=== PATIENT | female | born 1980 | race Caucasian/White ===

== ENCOUNTER 2020-10-14 16:46 | Inpatient (IN) | payer OTHER ==
[~2020-10-14] VITALS: Ht 160 cm; Wt 52.6 kg
[~2020-10-14 16:46] MED LIST: LITHIUM CARBON300 M1 PO; NEURONTIN300 MG PO; REMERON15 MG PO; TRAMADOL HCL50 MG PO
[2020-10-14 17:06] VITALS: BP 117/79
[2020-10-14 19:38] LABS: HEMATOCRIT 37.5 % (37.0-47.0); MEAN CELL VOLUME 87.8 fl (81.0-99.0); MEAN CORPUSCULAR HGB 28.6 pg (27.0-31.0); MEAN CORPUSCULAR HGB CONC 32.5 g/dl (33.0-37.0); MEAN PLATELET VOLUME 9.8 fl (9.6-12.3); PLATELET COUNT AUTOMATED 339 10*3/uL (130-400); RED BLOOD COUNT 4.27 10*6/uL (4.10-5.10); RED CELL DISTRI WIDTH 12.8 % (0-14.5); WHITE BLOOD COUNT 8.8 10*3/uL (4.8-10.8)
[2020-10-14 19:54] LABS: ALBUMIN 3.3 gm/dl (3.1-4.5); ALKALINE PHOSPHATASE 82 U/L (45-117); BUN 8 mg/dl (7-24); CHLORIDE 111 mmol/L (98-107); CREATININE 0.58 mg/dL (0.55-1.02); POTASSIUM 3.2 mmol/L (3.5-5.1); SGOT/AST 25 IU/L (3-35); SGPT/ALT 44 U/L (12-78); SODIUM 141 mmol/L (136-145)
[2020-10-14 19:59] LABS: BASOPHILS 2 % (0-1); BURR CELLS MODERATE; PLATELET SUFFICIENCY NORMAL (NORMAL); TOTAL CELLS COUNTED 100 #CELLS
[2020-10-14 20:00] LABS: OVALOCYTES FEW
[2020-10-14 21:17] LABS: BILIRUBIN Negative (Negative); BLOOD Negative (Negative); CLARITY Cloudy (Clear); COLOR Dark Yellow (Yellow); GLUCOSE Negative (Negative); KETONE Trace (Negative); LEUKO ESTERASE Trace (Negative); NITRITE Positive (Negative); SPECIFIC GRAVITY >= 1.030 (1.001-1.030)
[2020-10-14 21:22] LABS: BACTERIA 4+; MUCOUS TRACE; RBC 0-2 rbc/hpf (0-2)
[2020-10-14 23:10] VITALS: BP 122/63
[2020-10-15 04:30] VITALS: BP 125/82
[2020-10-15 08:10] VITALS: BP 106/57
[2020-10-15 10:22] VITALS: BP 149/99
[2020-10-15 10:37] VITALS: BP 108/50
[2020-10-15 10:52] VITALS: BP 123/72
== END 2020-10-15 12:31 | disposition left against medical advice (07) | DRG 364 ==
LOC: ED 16:46 → EDHOLD 22:44
PROVIDERS: Physician Assistant; ADMIT Internal Medicine; ATTEND Internal Medicine
PROC: 0J9G0ZZ Drainage of Right Lower Arm Subcutaneous Tissue and Fascia, Open Approach (ICD-10-PCS; principal; 2020-10-15)
PROC: 0JCG0ZZ Extirpation of Matter from Right Lower Arm Subcutaneous Tissue and Fascia, Open Approach (ICD-10-PCS; 2020-10-15)
DX: L02.413 Cutaneous abscess of right upper limb (principal); S50.851A Superficial foreign body of right forearm, initial encounter; E87.2 Acidosis; F14.10 Cocaine abuse, uncomplicated; E87.6 Hypokalemia; F17.210 Nicotine dependence, cigarettes, uncomplicated; R82.71 Bacteriuria; F11.10 Opioid abuse, uncomplicated; B19.20 Unspecified viral hepatitis C without hepatic coma; F31.9 Bipolar disorder, unspecified; X58.XXXA Exposure to other specified factors, initial encounter; Z86.14 Personal history of Methicillin resistant Staphylococcus aureus infection; Z88.0 Allergy status to penicillin; Y93.89 Activity, other specified; Y92.89 Other specified places as the place of occurrence of the external cause; Y99.8 Other external cause status